=== PATIENT | male | born 1960 | race Caucasian/White ===

== ENCOUNTER 2016-12-15 06:10 | Day surgery (SDC) | payer MEDICARE ==
[~2016-12-15] VITALS: Ht 180.3 cm; Wt 131.4 kg
[2016-12-15] MEDS ORDERED: RINGERS SOLUTION,LACTATED 1,000 ML IV ONE ×2 (07:30→07:43)
[2016-12-15] MEDS ORDERED: SODIUM CHLORIDE 0.9% 0 ML IV ONE (07:41)
[2016-12-15 07:43] LABS: BASOPHILS % (AUTO) 0.6 % (0.0-2.0); EOSINOPHILS % (AUTO) 2.7 % (1.0-6.0); HEMATOCRIT 42.9 % (41-53); HEMOGLOBIN 14.6 g/dL (13.5-17.5); LYMPHOCYTES # (AUTO) 2.9 K/uL (1.0-4.8); LYMPHOCYTES % (AUTO) 38.6 % (22.0-44.0); MEAN CORPUSCULAR HEMOGLOBIN 32.5 pg (26.0-34.0); MEAN CORPUSCULAR VOLUME 96 fL (80-100); MONOCYTES # (AUTO) 0.6 K/uL (0.1-1.0); MONOCYTES % (AUTO) 8.4 % (2.0-9.0); NEUTROPHILS # (AUTO) 3.7 K/uL (1.8-7.7); NEUTROPHILS % (AUTO) 49.7 % (40.0-70.0); PLATELET COUNT (AUTO) 165 K/uL (150-450); RED BLOOD CELL COUNT(AUTO) 4.49 MIL/uL (4.50-5.90); RED CELL DISTRIBUTION WIDTH 14.5 % (11.5-14.5); WHITE BLOOD COUNT (AUTO) 7.5 K/uL (4.5-11.0)
[2016-12-15 07:52] LABS: CALCIUM, TOTAL 8.3 mg/dL (8.8-10.5); CREATININE 1.27 mg/dL (0.60-1.30)
[2016-12-15 07:53] LABS: PROTHROMBIN TIME 10.9 SEC (9.4-11.6)
[2016-12-15 07:57] LABS: ALBUMIN 3.4 g/dL (3.4-5.0); BILIRUBIN,TOTAL 0.3 mg/dL (0.1-1.0); TOTAL PROTEIN, SERUM 6.5 g/dL (6.4-8.2)
[2016-12-15] MEDS ORDERED: RISP4 PO (08:14)
[2016-12-15] MEDS ORDERED: HALO5 PO (08:14)
[2016-12-15] MEDS ORDERED: VITAD1000 PO (08:14)
[2016-12-15] MEDS ORDERED: DIPH50 PO (08:14)
[2016-12-15] MEDS ORDERED: DIVA500T52 PO ×2 (08:14)
[2016-12-15] MEDS ORDERED: BENZ0.5T6 PO ×2 (08:14)
[2016-12-15] MEDS ORDERED: CLON2 PO (08:14)
[2016-12-15] MEDS ORDERED: RISP2 PO (08:14)
[2016-12-15] MEDS ORDERED: MIRALAX PO (08:14)
[2016-12-15] MEDS ORDERED: CYAN100092 PO (08:14)
[2016-12-15] MEDS ORDERED: ARIP15TA3 PO (08:14)
[2016-12-15] MEDS ORDERED: CLON1 PO (08:14)
[2016-12-15] MEDS ORDERED: FLUO-191 PO (08:14)
[2016-12-15] MEDS ORDERED: AMPICILLIN SODIUM ONE ×2 (08:42→08:49)
[2016-12-15] MEDS ORDERED: FentaNYL CITRATE-PF 100 MCG/2 ML VIAL IVP PRN (10:00)
[2016-12-15] MEDS ORDERED: HYDROmorphone 2 MG/ML SYRINGE IVP PRN (10:00)
[2016-12-15] MEDS ORDERED: MEPERIDINE-PF 25 MG/ML SYRINGE IVP PRN (10:00)
[2016-12-15] MEDS ORDERED: KETOROLAC TROMETHAMINE 60 MG/2 ML VIAL IM ONE (12:00)
[2016-12-15] MEDS ORDERED: EPHEDrine SULFATE 50 MG/ML VIAL IM ONE (12:00)
[2016-12-15] MEDS ORDERED: LIDOCAINE HCL/PF 2% 5 ML VIAL INJ ONE (12:00)
[2016-12-15] MEDS ORDERED: ONDANSETRON HCL 4 MG/2 ML VIAL IVP ONE (12:00)
[2016-12-15] MEDS ORDERED: SUCCINYLCHOLINE CHLORIDE 20 MG/ML 10 ML VIAL IVP ONE (12:00)
[2016-12-15] MEDS ORDERED: DEXAMETHASONE SOD PHOS 4 MG/ML VIAL IVP ONE (12:00)
[2016-12-15] MEDS ORDERED: GLYCOPYRROLATE 0.2 MG/ML VIAL IM ONE (12:00)
[2016-12-15] MEDS ORDERED: PROPOFOL 1% 20 ML VIAL IVP ONE (12:00)
[2016-12-15] MEDS ORDERED: FentaNYL CITRATE-PF 100 MCG/2 ML VIAL IVP ONE (12:00)
[2016-12-15] MEDS ORDERED: OXYGEN THERAPY IH SCH (20:00)
== END 2016-12-15 12:10 | disposition home or self-care (01) ==
LOC: SURGERY 06:10
PROVIDERS: ATTEND Dentist General Practice
DX: K05.30 Chronic periodontitis, unspecified (principal); G89.29 Other chronic pain; M54.5 Low back pain; F20.9 Schizophrenia, unspecified; F32.9 Major depressive disorder, single episode, unspecified; F84.0 Autistic disorder; E66.9 Obesity, unspecified; Z98.890 Other specified postprocedural states; Z79.01 Long term (current) use of anticoagulants; Z79.899 Other long term (current) drug therapy
CPT/HCPCS: 93005; J0290; J0330; J1100; J1885; J2405; J2704; J3010; J3490; J7030; J7120

== ENCOUNTER 2022-08-01 12:21 | Emergency (ER) | payer MEDICARE ==
[~2022-08-01] VITALS: Ht 175.3 cm; Wt 75.0 kg
[~2022-08-01 12:21] MED LIST: ARIP15TA27 PO; BENZ0.5T49 PO; CHOL100018 PO; CLON-595 PO; CLON-598 PO; CYAN100092 PO; DIPH50 PO; DIVA500T53 PO; FLUO-177 PO; HALO5TAB2 PO; MIRALAX PO; RISP2TAB45 PO; RISP4TAB73 PO
[2022-08-01] MEDS ORDERED: THIOT10 PO (13:46)
[2022-08-01] MEDS ORDERED: APIX5TAB PO (13:46)
[2022-08-01] MEDS ORDERED: SENN-338 PO (13:46)
[2022-08-01] MEDS ORDERED: ASCO500 PO (13:46)
[2022-08-01] MEDS ORDERED: DOCU-350 PO (13:46)
[2022-08-01] MEDS ORDERED: MELA5TAB40 PO (13:46)
[2022-08-01] MEDS ORDERED: SERT-162 PO (13:46)
[2022-08-01] MEDS ORDERED: FERR-82 PO (13:46)
[2022-08-01] MEDS ORDERED: POLY17PO47 PO (13:46)
[2022-08-01] MEDS ORDERED: ACYC-138 PO (13:46)
[2022-08-01] MEDS ORDERED: DILT30TA3 PO (13:46)
[2022-08-01] MEDS ORDERED: VALP250C48 PO (13:46)
[2022-08-01] MEDS ORDERED: FOLI-130 PO (13:46)
[2022-08-01 14:04] LABS: BASOPHILS % (AUTO) 0.6 % (0.0-2.0); EOSINOPHILS % (AUTO) 1.6 % (1.0-6.0); HEMOGLOBIN 13.5 g/dL (13.5-17.5); LYMPHOCYTES # (AUTO) 1.7 K/uL (1.0-4.8); LYMPHOCYTES % (AUTO) 32.5 % (22.0-44.0); MEAN CORPUSCULAR HEMOGLOBIN 33.3 pg (26.0-34.0); MEAN CORPUSCULAR HGB CONC 32.8 G/dL (31.0-37.0); MEAN CORPUSCULAR VOLUME 101 fL (80-100); MONOCYTES # (AUTO) 0.5 K/uL (0.1-1.0); MONOCYTES % (AUTO) 8.6 % (2.0-9.0); NEUTROPHILS % (AUTO) 56.7 % (40.0-70.0); PLATELET COUNT (AUTO) 209 K/uL (150-450); RED BLOOD CELL COUNT(AUTO) 4.05 MIL/uL (4.50-5.90); RED CELL DISTRIBUTION WIDTH 15.7 % (11.5-14.5)
[2022-08-01 14:10] LABS: ANION GAP 6 mmol/L (8-16); CARBON DIOXIDE 29 mmol/L (22-29); CHLORIDE 103 mmol/L (98-107); GLUCOSE,RANDOM 89 mg/dL (70-110); POTASSIUM 4.1 mmol/L (3.5-5.1); SODIUM SERUM 138 mmol/L (136-145); UREA NITROGEN, BLOOD 12 mg/dL (7-18)
[2022-08-01 14:11] LABS: CALCIUM, TOTAL 8.9 mg/dL (8.8-10.5); CREATININE 0.78 mg/dL (0.60-1.30); GLOMERULAR FILTR. RATE CALC > 60 mL/min (>60)
[2022-08-01 14:16] LABS: ALANINE AMINOTRANSFERASE 13 U/L (12-78); ALBUMIN 3.4 g/dL (3.4-5.0); ALKALINE PHOSPHATASE 97 U/L (46-116); ASPARTATE AMINOTRANSFERASE 17 U/L (15-37); BILIRUBIN,TOTAL 0.2 mg/dL (0.1-1.0); TOTAL PROTEIN, SERUM 6.9 g/dL (6.4-8.2)
[2022-08-01 18:24] VITALS: BP 129/70
== END 2022-08-01 20:42 | disposition home or self-care (01) ==
LOC: EMS 12:36
DX: F20.9 Schizophrenia, unspecified (principal); F41.9 Anxiety disorder, unspecified; F32.A Depression, unspecified; I95.9 Hypotension, unspecified
CPT/HCPCS: 99284; 80053; 85025; 36415; G0480